=== PATIENT | female | born 1950 | race Caucasian/White ===

== ENCOUNTER 2018-09-02 17:51 | Emergency (ER) | payer OTHER ==
--- NOTE | 2018-09-02 17:53 | PDOC ---
Attending Attestation - Resident Resident Name: Amari Crain - ED Attending Attestation I have performed the following: I have examined & evaluated the patient, The case was reviewed & discussed with the resident, I agree w/resident's findings & plan - HPI HPI: 09/02/18 18:08 68 y/o female with a hx of sciatica presents to the ER with left sided sciatica pain for 2 days. Patient denies fall or trauma. No weakness. Pain down left leg. No incontinence, fever or chills. No N/V/d/C. Usually takes muscle relaxant and Medrol dose pack when this occurs. - Physicial Exam PE: 09/02/18 18:09 VSS HEENT: unremarkable Heart: RRR w/o murmur Lungs: CTA b/l no wheezes Abd: soft non tender Ext: neg C/C/E Neuro: strength 5+/5 b/l in UE and LE, no focal deficits noted Back: no tenderness to paravertebral muscles no spinous process tenderness, mild tenderness to left piriformis area, neg SLR test b/l - Medical Decision Making 09/02/18 18:11 Pt appears to have a flare-up of her sciatica Will given Decadron 10 mg IM and Flexeril 5 mg po Will send home with Medrol dose pack and Flexeril Advised to check sugar If worsen to return to ER Pt and daughter in agreement with plan Case discussed with Resident Dr. Crain Final Dx: Left sided sciatica
[2018-09-02] MEDS ORDERED: CYCLOBENZAPRINE HCL 10 MG TABLET (FP) PO ONE (18:06)
[2018-09-02] MEDS ORDERED: DEXAMETHASONE SOD PHOSPHATE 10 MG/1 ML VIAL IM ONE (18:06)
[2018-09-02] MEDS ORDERED: CYCLOBENZAPRINE HCL 10 MG TABLET (FP) ONE (18:09)
[2018-09-02] MEDS ORDERED: DEXAMETHASONE SOD PHOSPHATE 10 MG/1 ML VIAL ONE (18:09)
[2018-09-02 18:11] VITALS: BP 184/85; PULSE 78; TEMP 97.6; BMI 26.8
--- NOTE | 2018-09-02 18:19 | PDOC ---
History of Present Illness - General Chief Complaint: Back Pain Stated Complaint: SCIATICA Time Seen by Provider: 09/02/18 17:52 History Source: Patient Exam Limitations: No Limitations - History of Present Illness Initial Comments: 09/02/18 18:13 68 yo female pmh DM, HTN, HLD and Sciatica presents with left lower back pain radiating down to ler left calf. Pt states she was diagnosed with sciatica 8 months ago and has had flare ups every month. Pt is from [place] and visiting the . Pt allergic to aspirin and toradol so when a flare up occur, she usually get a muscle relaxant and decadron. Pt states todays pain feels just like past flare ups and denies any saddle anesthesia, incontinence, weakness or sensory changes in the left leg compared to the right. Pt able to ambulate. Past History - Past Medical History Allergies/Adverse Reactions: Allergies Allergy/AdvReac Type Severity Reaction Status Date / Time ketorolac Allergy Intermediate Swelling Verified 09/02/18 18:11 aspirin Allergy Mild Rash Verified 09/02/18 18:11 Home Medications: Ambulatory Orders Amlodipine Besylate [Norvasc -] 10 mg PO DAILY 09/02/18 Atorvastatin Ca [Lipitor] 20 mg PO DAILY 09/02/18 Cyclobenzaprine HCl [Flexeril -] 10 mg PO TID #21 tablet 09/02/18 Fenofibrate Nanocrystallized [Triglide] 160 mg PO DAILY 09/02/18 Glipizide/Metformin HCl [Glipizide-Metformin 5-500 mg] 2 each PO BID 09/02/18 Levothyroxine Sodium [Synthroid] 137 mcg PO DAILY 09/02/18 Linagliptin [Tradjenta] 5 mg PO DAILY 09/02/18 Losartan Potassium 50 mg PO DAILY 09/02/18 Methylprednisolone [Medrol Dose Aj] 4 mg PO ASDIR #21 tablet 09/02/18 Metoprolol Succinate [Toprol Xl] 50 mg PO DAILY 09/02/18 COPD: No Diabetes: Yes HTN: Yes Other medical history: CHRONIC BACK PAIN - Immunization History Immunization Up to Date: Yes - Suicide/Smoking/Psychosocial Hx Smoking History: Never smoked Hx Alcohol Use: No Drug/Substance Use Hx: No Substance Use Type: None Review of Systems - Review of Systems Constitutional: No: Chills, Fever Respiratory: No: Shortness of Breath Cardiac (ROS): No: Chest Pain ABD/GI: No: Constipated, Diarrhea : No: Burning, Dysuria Musculoskeletal: Yes: Back Pain. No: Muscle Weakness Neurological: Yes: Numbness (radiating lower back to left leg), Tingling. No: Weakness, Unsteady Gait *Physical Exam - Vital Signs Last Vital Signs Temp Pulse Resp BP Pulse Ox 97.6 F 78 16 184/85 H 99 09/02/18 17:51 09/02/18 17:51 09/02/18 17:51 09/02/18 17:51 09/02/18 17:51 - Physical Exam General Appearance: Yes: Nourished, Appropriately Dressed HEENT: positive: EOMI Cardiovascular: positive: Regular Rhythm, Regular Rate. negative: Edema, Murmur Vascular Pulses: Dorsalis-Pedis (R): 4+, Doralis-Pedis (L): 4+ Musculoskeletal: positive: Normal Inspection, Decreased Range of Motion (left lower ext in all planes due to pain) Extremity: positive: Normal Capillary Refill. negative: Coldness, Pedal Edema Integumentary: positive: Normal Color, Dry, Warm Neurologic: positive: Fully Oriented, Alert, Normal Mood/Affect, Normal Response , Motor Strength 5/5. negative: Numbness, Sensory Deficit Moderate Sedation - Procedure Monitoring Vital Signs: Procedure Monitoring Vital Signs Temperature 97.6 F 09/02/18 17:51 Pulse Rate 78 09/02/18 17:51 Respiratory Rate 16 09/02/18 17:51 Blood Pressure 184/85 H 09/02/18 17:51 O2 Sat by Pulse Oximetry (%) 99 09/02/18 17:51 Medical Decision Making - Medical Decision Making 09/02/18 18:23 68 yo female pmh sciatica presents with shooting pain down her left leg starting in her left buttock vitals: pressure is elevated. Will treat pain and reassess vitals otherwise normal 5mg flexiril PO and 10 mg Decadron given Pt returning to [place] on Sep 26 2018 and will have physical therapy treatment there. S/S of the same quality and intensity as past flare ups. No imaging needed at this time due to non concerning physical exam (normal neuro) and symptoms described are of the same quality and intensity as past flare ups 12/02/18 18:46 pt improved after medication DC home with PCP follow up and Cyclobenzaprine and Medrol dose pack. Patient comfortable with plan. *DC/Admit/Observation/Transfer Diagnosis at time of Disposition: Sciatica Qualifiers: Laterality: left Qualified Code(s): M54.32 - Sciatica, left side - Discharge Dispostion Disposition: HOME Condition at time of disposition: Good Decision to Admit order: No - Prescriptions Prescriptions: Cyclobenzaprine HCl [Flexeril -] 10 mg PO TID #21 tablet Methylprednisolone [Medrol Dose Aj] 4 mg PO ASDIR #21 tablet - Referrals Referrals: Jessica Novak MD [Primary Care Provider] - - Patient Instructions Printed Discharge Instructions: DI for Sciatica Additional Instructions: Please make appointment with your Primary Care Doctor within the next 24-48 hours. Take the Medrol dose pack and cyclobenzaprine as prescribed for the leg pain. Please return to the Emergency Room for new or worsening symptoms including but not limited to: weakness or changes in sensation to the left lower leg, changes in sensation between your legs and in the groin, incontinence or retention of urine or stool. Ice and stretch your lower back and legs as demonstrated during physical therapy classes. Thank you - Post Discharge Activity
== END 2018-09-02 19:00 | disposition home or self-care (01) ==
LOC: FER 17:51
PROC: 3E0233Z Introduction of Anti-inflammatory into Muscle, Percutaneous Approach (ICD-10-PCS; principal; 2018-09-02)
DX: M54.32 Sciatica, left side (principal)
CPT/HCPCS: 99282-25; J1100

== ENCOUNTER 2018-09-06 19:01 | Emergency (ER) | payer OTHER ==
[2018-09-06 19:07] VITALS: BP 148/72; PULSE 86; TEMP 97.9; BMI 27.3
--- NOTE | 2018-09-06 19:13 | PDOC ---
History of Present Illness - History of Present Illness Initial Comments: 09/06/18 20:04 The patient is a 68 year old female here today for evaluation of sciatic pain. The patients daughter reports that she has been having this pain for the past eight months and has been receiving back injections in [place] for her pain. The patient was seen on 09/02/18 and was prescribed a medrol pack and cyclobenzaprine which the patients daughter reports did not help and so stopped taking them. The patient reports that her pain radiates from the left side of her lower back and radiates all the way down her left leg. She notes this episode of sciatic pain is similar to her previous episodes but was more intense this time. Patient denies headache, lightheadedness. Denies fever, chills. Denies chest pain, shortness of breath. PAST MEDICAL HISTORY: diabetes, HTN, HLD, sciatica PAST SURGICAL HISTORY: no significant history FAMILY HISTORY: no pertinent history SOCIAL HISTORY: Pt lives with family and is employed. MEDICATIONS: reviewed ALLERGIES: As per nursing notes General: No fevers or chills, no weakness, no weight loss HEENT: No change in vision. No sore throat,. No ear pain CardioVascular: No chest pain or shortness of breath Respiratory:No cough, or wheezing. Gastrointestinal: no nausea, vomiting, diarrhea or constipation, No rectal bleeding Genitourinary: No dysuria, hematuria, or frequency Musculoskeletal: +low back and left leg pain. No joint or muscle pain or swelling Neurologic: No headache, vertigo, dizziness or loss of consciousness Psychiatric: nor depression Skin: No rashes or easy bruising Endocrine: no increased thirst or abnormal weight change Allergic: no skin or latex allergy All other systems reviewed and normal GENERAL: The patient is awake, alert, and fully oriented, in no acute distress. HEAD: Normal with no signs of trauma. EYES: Pupils equal, round and reactive to light, extraocular movements intact, sclera anicteric, conjunctiva clear. EXTREMITIES: +straight leg raise at 60 degrees. Normal range of motion, no edema. NEUROLOGICAL: Normal speech, normal gait. BACK: +tenderness lower lumbar spine and left sciatic notch PSYCH: Normal mood, normal affect. SKIN: Warm, Dry, normal turgor, no rashes or lesions noted. <Hardeep Carvalho - Last Filed: 09/06/18 20:04> - General History Source: Patient Exam Limitations: No Limitations - History of Present Illness Initial Comments: 09/06/18 19:43 A portion of this note was documented by scribe services under my direction. I have reviewed the details of the note, within reason, and agree with the documentation with the following case summary and management plan written by me. Patient treated in the ED. Nursing notes are reviewed and incorporated into the medical decision-making. Vital signs reviewed. Assessment plan: This is a 68-year-old female who comes in with her daughter for evaluation of sciatica. Patient is visiting from [place]. Patient has a long history of sciatica and said this is her typical sciatica but worse than usual. Patient was here 2 days ago and was given Decadron sent out on a Medrol Dosepak and Flexeril. However dollars the patient was unable to tolerate either of the Medrol Dosepak or the Flexeril does stop taking all of the medication. Patient is ALLERGIC to nonsteroidals. We'll give patient some IV Tylenol and IV ketamine here and discharge her with a prescription for some Valium and a few Percocet that she can take at night. We'll also refer her to the orthopedic as she is going to be visiting in this country for 3 more weeks. <Kylah Schreiber I - Last Filed: 09/06/18 20:20> - General Chief Complaint: Pain, Acute Stated Complaint: SCIATICA Time Seen by Provider: 09/06/18 19:10 Past History <Hardeep Carvalho - Last Filed: 09/06/18 20:04> - Past Medical History COPD: No Diabetes: Yes HTN: Yes - Immunization History Immunization Up to Date: Yes - Suicide/Smoking/Psychosocial Hx Smoking History: Never smoked Hx Alcohol Use: No Drug/Substance Use Hx: No Substance Use Type: None <Kylah Schreiber I - Last Filed: 09/06/18 20:20> - Past Medical History Allergies/Adverse Reactions: Allergies Allergy/AdvReac Type Severity Reaction Status Date / Time ketorolac Allergy Intermediate Swelling Verified 09/02/18 18:11 aspirin Allergy Mild Rash Verified 09/02/18 18:11 Home Medications: Ambulatory Orders Amlodipine Besylate [Norvasc -] 10 mg PO DAILY 09/02/18 Atorvastatin Ca [Lipitor] 20 mg PO DAILY 09/02/18 Cyclobenzaprine HCl [Flexeril -] 10 mg PO TID #21 tablet 09/02/18 Fenofibrate Nanocrystallized [Triglide] 160 mg PO DAILY 09/02/18 Glipizide/Metformin HCl [Glipizide-Metformin 5-500 mg] 2 each PO BID 09/02/18 Levothyroxine Sodium [Synthroid] 137 mcg PO DAILY 09/02/18 Linagliptin [Tradjenta] 5 mg PO DAILY 09/02/18 Losartan Potassium 50 mg PO DAILY 09/02/18 Methylprednisolone [Medrol Dose Aj] 4 mg PO ASDIR #21 tablet 09/02/18 Metoprolol Succinate [Toprol Xl] 50 mg PO DAILY 09/02/18 Diazepam [Valium] 2 mg PO BID #14 tablet MDD 6 09/06/18 Oxycodone HCl/Acetaminophen [Percocet 5-325 mg Tablet] 1 tab PO HS #12 tab MDD 2 09/06/18 *Physical Exam - Vital Signs Last Vital Signs Temp Pulse Resp BP Pulse Ox 97.9 F 86 18 148/72 97 09/06/18 19:03 09/06/18 19:03 09/06/18 19:03 09/06/18 19:03 09/06/18 19:03 <Hardeep Carvalho - Last Filed: 09/06/18 20:04> - Vital Signs Last Vital Signs Temp Pulse Resp BP Pulse Ox 97.9 F 86 18 148/72 97 09/06/18 19:03 09/06/18 19:03 09/06/18 19:03 09/06/18 19:03 09/06/18 19:03 <Kylah Schreiber I - Last Filed: 09/06/18 20:20> Moderate Sedation - Procedure Monitoring Vital Signs: Procedure Monitoring Vital Signs Temperature 97.9 F 09/06/18 19:03 Pulse Rate 86 09/06/18 19:03 Respiratory Rate 18 09/06/18 19:03 Blood Pressure 148/72 09/06/18 19:03 O2 Sat by Pulse Oximetry (%) 97 09/06/18 19:03 <Hardeep Carvalho - Last Filed: 09/06/18 20:04> - Procedure Monitoring Vital Signs: Procedure Monitoring Vital Signs Temperature 97.9 F 09/06/18 19:03 Pulse Rate 86 09/06/18 19:03 Respiratory Rate 18 09/06/18 19:03 Blood Pressure 148/72 09/06/18 19:03 O2 Sat by Pulse Oximetry (%) 97 09/06/18 19:03 <Kylah Schreiber I - Last Filed: 09/06/18 20:20> ED Treatment Course - Medications Given in the ED: ED Medications Discontinued Medications Generic Name Dose Route Start Last Admin Trade Name Thomas PRN Reason Stop Dose Admin Acetaminophen 1,000 mg 09/06/18 19:29 09/06/18 19:40 Ofirmev Injection - IVPB 09/06/18 19:30 1,000 mg ONCE ONE Administration Ketamine HCl 12 mg 09/06/18 19:33 09/06/18 19:47 Ketalar - IVPB 09/06/18 19:34 12 mg ONCE ONE Administration <Hardeep Carvalho - Last Filed: 09/06/18 20:04> *DC/Admit/Observation/Transfer - Attestations Scribe Attestion: 09/06/18 20:04 Documentation prepared by SOFIA Kruse, acting as medical practice administrator for Kylah Schreiber MD. <Hardeep Carvalho - Last Filed: 09/06/18 20:04> <Kylah Schreiber I - Last Filed: 09/06/18 20:20> Diagnosis at time of Disposition: Sciatica - Discharge Dispostion Disposition: HOME Condition at time of disposition: Stable - Prescriptions Prescriptions: Diazepam [Valium] 2 mg PO BID #14 tablet MDD 6 Oxycodone HCl/Acetaminophen [Percocet 5-325 mg Tablet] 1 tab PO HS #12 tab MDD 2 - Referrals Referrals: Jessica Novak MD [Primary Care Provider] - - Patient Instructions Additional Instructions: For the pain you can take Percocet one tablet before bed to help her sleep. It will make you drowsy and may make you dizzy so limited to the night time hours if at all possible. It may make you constipated so get a [id number] laxative and take if you have not had a bowel movement for more than one day. During the day for pain take Tylenol. In addition you can also take one value before bed if needed the value also make you drowsy and dizzy so again limited to the nighttime hours, Follow up with an orthopedist call Dr. Matos at [phone] in the morning for an appointment. Return to the emergency department immediately with ANY new, persistent or worsening symptoms. Continue any medications as previously prescribed by your physician. You should follow up with your primary doctor as soon as possible regarding today's emergency department visit. . Please make sure your doctor reviews the results of your emergency evaluation. Thank you for coming to the Emergency Department today for your care. It was a pleasure to see you today. Please note that your evaluation is INCOMPLETE until you follow-up with your doctor. - Post Discharge Activity
[2018-09-06] MEDS ORDERED: ACETAMINOPHEN 1000 MG/100 ML VIAL (NON FORMULARY) IVPB ONE (19:29)
[2018-09-06] MEDS ORDERED: ACETAMINOPHEN INJECTION 100 ML IVPB ONE (19:33)
[2018-09-06] MEDS ORDERED: KETAMINE HCL 500 MG/10 ML VIAL IVPB ONE (19:33)
[2018-09-06] MEDS ORDERED: KETAMINE HCL 500 MG/10 ML VIAL ONE (19:41)
== END 2018-09-06 20:40 | disposition home or self-care (01) ==
LOC: FER 19:01
PROC: 3E033NZ Introduction of Analgesics, Hypnotics, Sedatives into Peripheral Vein, Percutaneous Approach (ICD-10-PCS; principal; 2018-09-06)
DX: M54.30 Sciatica, unspecified side (principal); I10 Essential (primary) hypertension; E11.9 Type 2 diabetes mellitus without complications; E78.5 Hyperlipidemia, unspecified
CPT/HCPCS: 99282-25; J0131